=== PATIENT | female | born 1990 | race Caucasian/White ===

== ENCOUNTER 2018-09-10 12:25 | Inpatient (IN) | payer BC ==
[~2018-09-10] VITALS: Ht 147.3 cm; Wt 88.3 kg
[~2018-09-10 12:25] MED LIST: PREN-39 PO
[2018-09-10] MEDS ORDERED: LACTATED RINGER'S 1,000 ML IV PRN (12:34)
[2018-09-10] MEDS ORDERED: OXYTOCIN 30 UNITS/LR 500 ML IV PRN ×2 (13:00→22:00)
[2018-09-10] MEDS ORDERED: LIDOCAINE 1% (MPF) 30 ML INJ INJ PRN (13:00)
[2018-09-10] MEDS ORDERED: OXYTOCIN 30 UNITS/LR 500 ML IV SCH ×4 (13:00→21:52)
[2018-09-10] MEDS ORDERED: MISOPROSTOL 200 MCG TAB PR PRN ×2 (13:00→22:00)
[2018-09-10] MEDS ORDERED: CARBOPROST 250 MCG INJ IM PRN ×2 (13:00→22:00)
[2018-09-10] MEDS ORDERED: METHYLERGONOVINE 0.2 MG INJ IM PRN ×2 (13:00→22:00)
[2018-09-10 14:52] VITALS: BP 131/85; PULSE 120; RESP 18; Ht 147.3 cm; Wt 88.3 kg
[2018-09-10] MEDS: LACTATED RINGER'S 1,000 ML IV SCH ×2 (15:20→18:18)
--- NOTE | 2018-09-10 17:13 | PREAC ---
Date/Time of Note Date/Time of Note DATE: 09/10/18 TIME: 17:11 Anesthesia Eval and Record Evaluation Time Pre-Procedure Interview DATE: 09/10/18 TIME: 17:11 Age 28 Sex female NPO: 8 hrs Preoperative diagnosis intrauterine Planned procedure labor epidural Past Medical History Past Medical History: None Surgery & Anesthesia Issues No known issue Meds Anticoagulation: No Beta Vonda within 24 hr: No Reason Beta Vonda not given: Pt. not on B-Vonda Reported Medications Vits W-Ca,Fe,Fa(<1MG) ( Vitamins) 1 Tab Tablet, 1 TAB PO 03/16/14 Current Medications Lidocaine (Xylocaine 1% (Mpf)) 30 ml ONCE PRN INJ .EPISIOTOMY; Start 09/10/18 at 13:00 Oxytocin/Lactated Ringer's 500 ml @ 500 mls/hr ONCE POST IV ; Start 09/10/18 at 13:00 Oxytocin/Lactated Ringer's 500 ml @ 125 mls/hr POST IV ; Start 09/10/18 at 13:00 Lactated Ringer's 1,000 ml @ 2,000 mls/hr Q30M PRN IV .ANESTHESIA; Start 9 at 12:34 Oxytocin/Lactated Ringer's 500 ml @ 0 mls/hr ONCE PRN IV .VAGINAL BLEEDING; Start 09/10/18 at 13:00 Methylergonovine Maleate (Methergine) 0.2 mg ONCE PRN IM .VAGINAL BLEEDING; Start 09/10/18 at 13:00 Carboprost Tromethamine (Hemabate) 250 mcg ONCE PRN IM .VAGINAL BLEEDING; Start 09/10/18 at 13:00 Misoprostol (Cytotec) 1,000 mcg ONCE PRN DE .VAGINAL BLEEDING; Start 09/10/18 at 13:00 Oxytocin/Lactated Ringer's 500 ml @ 0 mls/hr FOR AUGMENTATION IV Last administered on 09/10/18at 15:23; Admin Dose 1 MLS/HR; Start 09/10/18 at 15:00 Lactated Ringer's 1,000 ml @ 125 mls/hr Q8H IV Last administered on 09/10/18at 15:20; Admin Dose 125 MLS/HR; Start 09/10/18 at 15:00 Meds reviewed: Yes Allergies Coded Allergies: No Known Drug Allergies (Unverified Allergy, Unknown, 09/10/18) Allergies Reviewed: Yes Labs/Studies Labs Reviewed: Reviewed by anesthesiologist Result Diagram: 09/10/18 1300 Laboratory Tests 09/10/18 13:00 Blood Bank Test 09/10/18 13:00 Antibody Screen NEGATIVE Blood Type O POSITIVE Rh Immune Globulin Candidate NO test: N/A Pre-procedure Exam Last vitals Vital Signs Date Temp Pulse Resp B/P (MAP) Pulse Ox O2 O2 Flow FiO2 Time Delivery Rate 09/10/18 98.7 120 18 131/85 Room Air 14:52 (100) Airway: Adequate mouth opening, Adequate thyromental dist Mallampati: Mallampati II Teeth: Normal Lung: Normal Heart: Normal ASA Physical Status ASA physical status: 2 Emergency: None Planned Anesthetic Neuraxial: Epidural Planned Pain Management Epidural, Parenteral pain med Pre-operative Attestations Prior to commencing anesthesia and surgery, the patient was re-evaluated, there was verification of: *The patient's identity *The results of appropriate recent lab work and preoperative vital signs *The above evaluation not changing prior to induction *Anesthetic plan, risk benefits, alternative and complications discussed with patient/family; questions answered; patient/family understands, accepts and wishes to proceed. KINGSTON BOTELLO MD Sep 10, 2018 17:12
[2018-09-10] MEDS ORDERED: ROPIVACAINE 0.2% 100ML BAG EPI SCH (17:30)
[2018-09-10] MEDS ORDERED: DIPHENHYDRAMINE 50 MG INJ IV PRN (17:30)
[2018-09-10] MEDS ORDERED: NALOXONE (0.4 MG/ML) INJ IV PRN (17:30)
[2018-09-10] MEDS ORDERED: ONDANSETRON 4 MG INJ IV PRN ×2 (17:30→22:00)
[2018-09-10] MEDS ORDERED: FENTAnyl 2MCG/ML-ROPIV 0.2% 100 ML ONE (17:38)
--- NOTE | 2018-09-10 18:55 | PAC ---
Date/Time of Note Date/Time of Note DATE: 09/10/18 TIME: 18:54 Post-Anesthesia Notes Post-Anesthesia Note Last documented vital signs Vital Signs Date Temp Pulse Resp B/P (MAP) Pulse Ox O2 O2 Flow FiO2 Time Delivery Rate 09/10/18 98.7 120 18 131/85 Room Air 14:52 (100) Activity: WNL Respiratory function: WNL Cardiovascular function: WNL Mental status: Baseline Pain reasonably controlled: Yes Hydration appropriate: Yes Nausea/Vomiting absent: Yes Comments BP: 138/82 HR: 81 RR: 15 T: 98 Sao2: 100% KINGSTON BOTELLO MD Sep 10, 2018 18:55
[2018-09-10] MEDS ORDERED: FENTAnyl 2MCG/ML-ROPIV 0.2% 100 ML BAG EPI SCH (19:00)
--- NOTE | 2018-09-10 19:41 | PREOPHP ---
DATE OF ADMISSION: 09/10/2018 HISTORY OF PRESENT ILLNESS: Mrs. Grant is a 28-year-old 4, para 3, EDC 09/14/2018w intraut erine at 39 weeks gestational age, was sent from perinatology/Dr. Mancuso for delivery secon chidi to oligohydramnios. She denies any headache, nausea, vomiting, shortness of breath, or visual c hanges. She denies any vaginal discharge. She reports good movement. Her care took place with Zhane Garza M.D. MEDICAL HISTORY: None. MEDICATIONS: vitamins. PAST SURGICAL HISTORY: None. OBSTETRIC HISTORY: x3 vaginal deliveries. GYNECOLOGIC HISTORY: Twelve, regular 3 to 4 days. Denies any sexually transmitted disease. Sexuall y active with 1 partner. SOCIAL HISTORY: Denies any smoking, drugs or alcohol. FAMILY HISTORY: None. REVIEW OF SYSTEMS: All within normal except history of present illness. PHYSICAL EXAMINATION: HEENT: Within normal. LUNGS: CTA bilateral. CARDIOVASCULAR: S1, S2, regular rhythm. ABDOMEN: Gravid, nontender. Negative CVA bilateral. EXTREMITIES: No calf tenderness. PELVIC: Vaginal exam on admission, 3 cm, 280, -2. heart tracing category 1, with good ____ oc casional contractions. ASSESSMENT: Intrauterine at 39 weeks gestational age with oligohydramnios. PLAN: Pitocin for labor induction. Risks, benefits and alternatives explained. All questions were answered. Dictated By: ZHANE GARCAI/KYLEE Conf#: [id number] DID#: [id number]
--- NOTE | 2018-09-10 21:58 | LDN ---
Date/Time of Note Date/Time of Note DATE: 09/10/18 TIME: 21:55 Delivery Summary Weeks of Gestation 39 Assisted Vaginal Delivery: Vacuum (after verbal consent for risk explained. kiwi vacuum applied at plus 3 station. no pop offs. one pull for 10 seconds. no complication secondary to distress) Placenta Delivered: Spontaneously Meconium: none Episiotomy: Yes Laceration repair: rmle repair with 2-0 and 3-0 chromic Anesthesia type: Epidural Estimated blood loss: 200 Sponge & Needle done & correct: Yes All needle counts correct: Yes Any foreign bodies felt in the: No Infant Delivery Information Sex Infant Sex: male Apgars 1 Minute: 9 5 Minute: 9 Suctioning Nose & mouth suctioned at alvin: No Delee suction performed: No Umbilical Cord Umbilical cord with: 3 Vessels Cord presentations: nuchal cord (redicible) Nuchal cord present X: 1 Cord Blood was obtained: Yes ZHANE OLIVEIRA MD Sep 10, 2018 21:58
[2018-09-10] MEDS ORDERED: IBUPROFEN 600 MG TAB PO PRN (22:00)
[2018-09-10] MEDS ORDERED: OXYCODONE/ASPIRIN (4.88/325) TAB PO PRN ×2 (22:00)
[2018-09-10] MEDS ORDERED: NACL 0.9% 3 ML SYG IV SCH (22:00)
[2018-09-10 22:35] VITALS: BP 111/52; PULSE 82; RESP 20
[2018-09-10 23:00] VITALS: BP 102/55; PULSE 92; RESP 18
[2018-09-11] VITALS: BP 107/57; PULSE 90; RESP 19
[2018-09-11] MEDS ORDERED: ROPIVACAINE 0.2% 100ML BAG EPI SCH
[2018-09-11] MEDS: LANOLIN HPA 1 PKT TOP PRN (00:01)
[2018-09-11] MEDS: BENZOCAINE 20% 56 ML SPRAY TOP PRN (00:01)
[2018-09-11] MEDS: WITCH HAZEL/GLYCERIN PAD PR PRN (00:01)
[2018-09-11 04:07] VITALS: BP 107/60; PULSE 88; RESP 18
[2018-09-11] MEDS: IBUPROFEN 600 MG TAB PO SCH ×5 (05:40→23:39)
[2018-09-11 07:30] VITALS: BP 112/62; PULSE 78; RESP 17
[2018-09-11] MEDS: SENNA/DOCUSATE NA (8.6MG/50MG) TAB PO SCH ×2 (09:40→23:37)
--- NOTE | 2018-09-11 12:37 | PD.PPDC ---
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
--- NOTE | 2018-09-11 12:39 | DS ---
Date/Time of Note Date/Time of Note DATE: 09/11/18 TIME: 12:37 Obstetrical Discharge Record Final Diagnosis Final Diagnosis: Term delivered Vaginal Delivery Obstetrical Delivery: Spontaneous, Episiotomy, Repaired, Vacuum Extraction Complications Other (oligo) Augmentation: No Induction: Yes Condition on Discharge Physical Assessment Last Vitals: stable afebrile Voiding: Yes Bowel Movement: Yes Breast: Soft, non-tender, Filling Fundus: Firm Abdomen and Incision: soft nt Episiotomy: intact Calf Tenderness: No Patient Condition: ZHANE Joyce MD Sep 11, 2018 12:39
[2018-09-11 15:57] VITALS: BP 108/62; PULSE 88; RESP 18
[2018-09-11] MEDS ORDERED: MEASLES,MUMPS,RUBELLA VACCINE INJ SC* ONE (18:30)
[2018-09-11 20:00] VITALS: BP 112/68; PULSE 86; RESP 19
[2018-09-12 04:15] VITALS: BP 92/57; PULSE 80; RESP 19
[2018-09-12] MEDS: IBUPROFEN 600 MG TAB PO SCH ×2 (05:36→11:24)
[2018-09-12 07:40] VITALS: BP 106/55; PULSE 76; RESP 17
[2018-09-12] MEDS: SENNA/DOCUSATE NA (8.6MG/50MG) TAB PO SCH (08:52)
[2018-09-12] MEDS ORDERED: DIPHTH/TET/ACEL PERTUSS (ADULT) 0.5 ML VIAL IM* ONE (09:00)
[2018-09-12] MEDS: BENZOCAINE 20% 56 ML SPRAY TOP PRN (11:23)
[2018-09-12] MEDS: LANOLIN HPA 1 PKT TOP PRN (11:24)
[2018-09-12] MEDS: WITCH HAZEL/GLYCERIN PAD PR PRN (11:24)
== END 2018-09-12 13:00 | disposition home or self-care (01) | DRG 807 ==
LOC: L-D 12:25 → PP1 22:37
PROVIDERS: ADMIT Obstetrics & Gynecology; ATTEND Obstetrics & Gynecology
PROC: 10D07Z6 Extraction of Products of Conception, Vacuum, Via Natural or Artificial Opening (ICD-10-PCS; principal; 2018-09-10)
PROC: 0W8NXZZ Division of Female Perineum, External Approach (ICD-10-PCS; 2018-09-10)
PROC: 3E033VJ Introduction of Other Hormone into Peripheral Vein, Percutaneous Approach (ICD-10-PCS; 2018-09-10)
DX: O41.03X0 Oligohydramnios, third trimester, not applicable or unspecified (principal); Z37.0 Single live birth; Z3A.39 39 weeks gestation of pregnancy; O69.81X0 Labor and delivery complicated by cord around neck, without compression, not applicable or unspecified
CPT/HCPCS: 62319; 85014; 85018; 85025; 85610; 85730; 86592; 86850; 86900; 86901; 90715; 99464; A4310; J2210; J2590; J3010; J7120